=== PATIENT | female | born 1990 | race Caucasian/White ===

== ENCOUNTER 2018-07-28 22:34 | Emergency (ER) | payer OTHER, SELFPAY ==
[2018-07-28 22:42] VITALS: BP 115/67; PULSE 72; RESP 22; TEMP 37.3; O2SAT 100
[2018-07-28 22:53] VITALS: PULSE 71; RESP 17
[2018-07-28] MEDS: Normal Saline 1,000 ML 1000 ML IV (23:05)
[2018-07-28] MEDS: Ondansetron 4 MG/2 ML VIAL IVP (23:15)
[2018-07-28 23:16] LABS: Abs Immature Grans 0.01 k/cumm (0.0-0.09); Absolute Basophil Count 0.01 k/cumm (0.0-0.2); Absolute Lymphocyte Count 0.96 k/cumm (1.2-3.4); Absolute Monocyte Count 0.47 k/cumm (0.11-0.7); Absolute Neutrophil Count 9.42 k/cumm (1.2-6.7); Basophils % 0.1; HCT 46.3 % (36.0-46.0); HGB 16.4 g/dL (12.0-15.5); Immature Grans % 0.1; Lymphocytes % 8.8; Mean Corp. HGB Concentration 35.4 g/dL (32.0-36.0); Mean Corpuscular Hemoglobin 30.1 pg (27.0-33.0); Mean Platelet Volume 11.2 fL (8.0-11.0); Monocytes % 4.3; Neutrophils % 86.7; Platelet Count 235 x1000/uL (130-400); RBC 5.45 m/cumm (4.00-5.20); RBC Distribution Width 12.3 % (11.7-14.6); White Blood Cell Count 10.87 k/cumm (4.4-10.8)
--- NOTE | 2018-07-28 23:36 | NUR.NOTE ---
Nursing Note: Urine test cancelled- was completed @ correctional facility prior to admission and was negative.
[2018-07-28 23:55] LABS: ALT 22 U/L (12-78); AST 17 U/L (15-37); Albumin 4.4 g/dL (3.4-5.0); Alkaline Phosphatase 105 U/L (46-116); BUN 13 mg/dL (7-18); Bilirubin, Total 0.6 mg/dL (0.2-1.0); CREATININE 0.94 mg/dL (0.55-1.02); Calcium 9.3 mg/dL (8.5-10.1); Chloride 104 mmol/L (98-107); Glucose 92 mg/dL (70-100); Lipase 66 U/L (73-393); Sodium 145 mmol/L (136-145); Total Protein 8.6 g/dL (6.4-8.2)
[2018-07-28 23:56] LABS: Potassium 2.9 mmol/L (3.5-5.1)
[2018-07-29] MEDS: POTASSIUM CHLORIDE 10 MEQ/100 ML BAG 100 MEQ IVPB (00:05)
[2018-07-29] MEDS: Metoclopramide 10 MG/2 ML VIAL IVP (00:33)
[2018-07-29] MEDS: Normal Saline 50 ML 200 ML (00:34)
--- NOTE | 2018-07-29 01:14 | ED.GENADUL_ITS ---
Discharge Plan Disposition Patient Disposition: OTHER Condition: Stable Discharge Details Chief Complaint: DrugWithdr Clinical Impression: Acute dehydration, Vomiting, Acute drug withdrawal syndrome Primary Care Provider: NONE,NONE ED Provider: Justyn Villa Home Meds and New Rx's Prescriptions: New potassium chloride 20 mEq tablet extended release 20 meq PO DAILY Qty: 10 RF: 0 magnesium 200 mg tablet 200 mg PO DAILY Qty: 7 RF: 0 ondansetron HCl [Zofran] 4 mg tablet 4 mg PO QID PRN (Reason: nausea and vomiting) Qty: 14 RF: 0 clonidine 0.1 mg/24 hr patch weekly 1 patch TD QWEEK Qty: 1 RF: 0 No Action ondansetron 4 mg Tablet,Disintegrating 8 mg PO DAILY RF: 0 buprenorphine HCl 2 mg Tablet, Sublingual 2 mg SUBLINGUAL DAILY RF: 0 Medical Decision Making This is a 27-year-old female with a past medical history of Suboxone and heroin use, who was recently incarcerated, and has been withdrawing off of her narcotics. For the last 24 hours she has had nausea, chills, occasional diarrhea and some vomiting. She denies any focal abdominal tenderness. She shows no signs of concerning abdominal tenderness on exam, she does show moderate dehydration. Bowel sounds are present. No hypertympanic bowel sounds. No signs to suggest obstruction at this point. Laboratory workup demonstrates mild hypokalemia, and some signs of dehydration. Patient will be rehydrated, potassium will be replaced. She has been given Zofran, Reglan, and Benadryl. Nausea appears to be well controlled. We will perform a p.o. trial, and if she is able to keep food down and feel she can be discharged back to her facility. At this point I feel her signs and symptoms are consistent with withdrawal symptoms. Blood pressure, heart rate, and temperature are all within normal limits. 1:56 AM The patient has received her IV potassium. She has been refusing her magnesium and oral potassium. We have rehydrated her with 1 L of normal saline 1 L of lactated Ringer's. She has tolerated this well. She is tolerating her oral fluids well. And has not had any repeat vomiting. The patient has been very noncompliant with her requests. She has required an arm board to maintain her IV for the rehydration. She did asked to go to the bathroom, we brought her to the bathroom and while inside she started the shower and began showering herself in her close and all the other ladies in the bathroom. X-ray has returned and shows no evidence of acute process, or obstruction. I feel that she can be safely discharged home with potassium, magnesium, and Zofran. We discussed red flags for which to return patient understands. I have extensively reviewed the treatment plan and discharge instructions with the patient. I have addressed all patient concerns at this time. The patient was made aware of what symptoms to monitor for that would warrant a return to the emergency department. Discussed the plan with the patient, they demonstrate verbal understanding and agreement with our assessment and plan at this time. Virtual radiology report no acute process HPI General Date/Time Provider Initiated Documentation: 07/28/18 22:58 . HPI Narrative: This is a 27-year-old female who presents today for evaluation of withdrawal symptoms. She is normally on Suboxone and taking heroin regularly on the street. She was placed in police custody few days ago, and has been in correction ever since. She has been experiencing withdrawal symptoms because of this. Per the correction facility staff the patient had a cow score of 20+. She was given Zofran and Subutex at the facility, in spite of initial treatment the patient has had continued vomiting, and symptoms of chills, occasional diarrhea, nausea, and feelings of generalized illness. She denies any focal complaint. She denies any headache, neck pain, chest pain, focal abdominal pain, shortness of breath. test at present facility in the last 48 hours is negative. She denies any other sick contacts. Patient denies any recent surgical history. She denies any pertinent family history. She has no other complaints at this time. Related Data Home Medications Medication Instructions Recorded Confirmed buprenorphine HCl 2 mg SUBLINGUAL DAILY 07/29/18 07/29/18 clonidine 1 patch TD QWEEK #1 each 07/29/18 magnesium 200 mg PO DAILY #7 tab 07/29/18 ondansetron 8 mg PO DAILY 07/29/18 07/29/18 ondansetron HCl [Zofran] 4 mg PO QID PRN #14 tab 07/29/18 potassium chloride 20 meq PO DAILY #10 tab 07/29/18 Previous Rx's Medication Instructions Recorded clonidine 1 patch TD QWEEK #1 each 07/29/18 magnesium 200 mg PO DAILY #7 tab 07/29/18 ondansetron HCl [Zofran] 4 mg PO QID PRN #14 tab 07/29/18 potassium chloride 20 meq PO DAILY #10 tab 07/29/18 Allergies Allergy/AdvReac Type Severity Reaction Status Date / Time No Known Allergies Allergy Unverified 07/28/18 22:46 General Stated Complaint: DrugWithdr JUMA: 4 Review of Systems Review of Systems 10 point review of systems was performed, pertinent positives and negatives are noted in the history of present illness. [facility] Social History Smoking/Tobacco Use Status: Current every day Exam Narrative Exam Narrative: 1.Const: Well-nourished, Well-developed, appearing stated age 2.Eyes: PERRL, no conjunctival injection, and symmetrical lids. 3.ENT: Atraumatic external nose and ears. Dry MM. Neck: Symmetric, trachea midline, No thyromegaly. Extremely poor dentition. 4.CVS: +S1/S2, No murmurs or gallops. Peripheral pulses 2+ and equal in all extremities. Brisk capillary refill in all extremities. 5.RESP: Unlabored respiratory effort. Clear to auscultation bilaterally. No wheezes rales or rhonchi 6.GI: Soft, Nontender/Nondistended, No hepatosplenomegaly. No guarding or rebound. Negative obturator and psoas sign. No focal abdominal tenderness. 7.MSK: Normocephalic/Atraumatic, Extremities w/o deformity or ttp No cyanosis or clubbing, Normal movement of all extremities 8.Skin: Warm, Dry. No rashes or lesions. 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 Sensation grossly intact, no focal neurologic deficits. 10.Psych: (AAO) x3. Appropriate mood and affect. The patient is very confrontational. Course Vital Signs Temperature 37.3 C 07/28/18 22:42 Pulse 72 07/28/18 22:42 Respiratory Rate 22 07/28/18 22:42 Blood Pressure 115/67 07/28/18 22:42 Pulse Oximetry 100 07/28/18 22:42 Temperature 37.3 C 07/28/18 22:42 Temperature Source Skin 07/28/18 22:42 Pulse 72 07/28/18 22:42 Respiratory Rate 22 07/28/18 22:42 Respiratory Effort Non-Labored 07/28/18 22:46 Respiratory Pattern Normal 07/28/18 22:48 Blood Pressure 115/67 07/28/18 22:42 Blood Pressure Position Left Lateral 07/28/18 22:42 Pulse Oximetry 100 07/28/18 22:42 Oxygen Delivery Method Room Air 07/28/18 22:42 Oxygen Flow Rate 0 07/28/18 22:42 Pain Level 8 07/28/18 22:42 Lab/Test Results Lab/Test Results: Laboratory Tests Range/Units 07/28/18 07/28/18 07/28/18 23:05 23:05 23:34 WBC (4.4-10.8) k/cumm 10.87 H RBC (4.00-5.20) m/cumm 5.45 H Hgb (12.0-15.5) g/dL 16.4 H Hct (36.0-46.0) % 46.3 H MCV (80-95) fL 85.0 MCH (27.0-33.0) pg 30.1 MCHC (32.0-36.0) g/dL 35.4 RDW (11.7-14.6) % 12.3 Plt Count (130-400) x1000/uL 235 MPV (8.0-11.0) fL 11.2 H Immature Gran % 0.1 Neutrophils % 86.7 Lymphocytes % 8.8 Monocytes % 4.3 Eosinophils % 0.0 Basophils % 0.1 Absolute Neutrophils (1.2-6.7) k/cumm 9.42 H Absolute Lymphocytes (1.2-3.4) k/cumm 0.96 L Absolute Monocytes (0.11-0.7) k/cumm 0.47 Absolute Eosinophils (0.0-0.7) k/cumm 0.00 Absolute Basophils (0.0-0.2) k/cumm 0.01 Sodium Cancelled 145 Potassium Cancelled 2.9 L* Chloride Cancelled 104 Carbon Dioxide Cancelled 25.0 Anion Gap Cancelled 16.0 H BUN Cancelled 13 Creatinine Cancelled 0.94 Estimated GFR/1.73 m2 Cancelled >= 60.00 Glucose Cancelled 92 Calcium Cancelled 9.3 Total Bilirubin Cancelled 0.6 AST Cancelled 17 ALT Cancelled 22 Alkaline Phosphatase Cancelled 105 Total Protein Cancelled 8.6 H Albumin Cancelled 4.4 Lipase Cancelled 66 L
[2018-07-29] MEDS: diphenhydrAMINE 50 MG/ML VIAL IVP (01:27)
[2018-07-29] MEDS: Lactated Ringers 1,000 ML 1000 ML IV (02:05)
[2018-07-29 02:25] VITALS: BP 93/79; PULSE 74; O2SAT 98
--- NOTE | 2018-07-29 02:25 | DI.RAD_ITS ---
SYMPTOM/DIAGNOSIS: VOMITING SUPINE AND UPRIGHT ABDOMEN: There is no evidence of free air. A moderate quantity of scattered stool is noted in the colon. There is no evidence of bowel obstruction. There is no evidence of gross organomegaly or localized intra-abdominal or pelvic mass. No acute bony abnormality is seen. SUMMARY: No plain image evidence of an acute abdomen.
[2018-07-29 02:26] VITALS: O2SAT 97
--- NOTE | 2018-07-29 02:36 | DI.VRAD_ITS ---
EXAM: XR Abdomen, 2 Views CLINICAL HISTORY: 27 years old, female; Signs and symptoms; Vomiting TECHNIQUE: Frontal view of the abdomen/pelvis with upright view of the abdomen. COMPARISON: No relevant prior studies available. FINDINGS: Intraperitoneal space: No free air. Gastrointestinal tract: Moderate amount of stool in the colon. No dilation. Organs: Unremarkable as visualized. Bones/joints: Unremarkable. IMPRESSION: No acute findings. Dictated and Authenticated by: Star Arnold MD. Ordering:DANELLE CORREIA MD
[2018-07-29 03:03] VITALS: O2SAT 100
[2018-07-29 03:04] VITALS: BP 151/88; PULSE 99; O2SAT 99
[2018-07-29 03:05] VITALS: O2SAT 98
[2018-07-29 03:14] VITALS: TEMP 36.8
== END 2018-07-29 03:20 | disposition other institution (70) ==
PROVIDERS: Emergency Provider Student in an Organized Health Care Education/Training Program
DX: E86.0 Dehydration (principal); R11.2 Nausea with vomiting, unspecified; E87.6 Hypokalemia; F11.23 Opioid dependence with withdrawal
CPT/HCPCS: 36415; 80053; 83690; 96361; 96365; 96375; 99285; 74019; 85025; J1200; J2405; J2765; J3480